=== PATIENT | female | born 1990 | race Caucasian/White ===

== ENCOUNTER 2019-01-21 16:43 | Emergency (ER) | payer OTHER ==
[~2019-01-21] VITALS: Ht 170.2 cm; Wt 67.1 kg
[2019-01-21 16:43] VITALS: BP 112/72
[~2019-01-21 16:43] MED LIST: ALPR0.25 PO; DEXT5TAB15 PO; SERT25TA PO
--- NOTE | 2019-01-21 18:14 | NUR ---
Patient discharged to home in stable condition. Written and verbal after care instructions given. Patient verbalizes understanding of instruction.
[2019-01-21] MEDS ORDERED: KETOROLAC TROMETHAMINE INJ 60 MG/2 ML VIAL IM ONE (18:30)
== END 2019-01-21 18:17 | disposition home or self-care (01) ==
LOC: ER 16:43
DX: F41.9 Anxiety disorder, unspecified (principal); F13.20 Sedative, hypnotic or anxiolytic dependence, uncomplicated; F11.20 Opioid dependence, uncomplicated; G89.29 Other chronic pain; M54.9 Dorsalgia, unspecified; F90.9 Attention-deficit hyperactivity disorder, unspecified type; F31.9 Bipolar disorder, unspecified; F10.10 Alcohol abuse, uncomplicated; F17.200 Nicotine dependence, unspecified, uncomplicated; Y90.9 Presence of alcohol in blood, level not specified; Z60.2 Problems related to living alone; Z76.0 Encounter for issue of repeat prescription

== ENCOUNTER 2020-05-17 13:21 | Emergency (ER) | payer OTHER ==
[~2020-05-17] VITALS: Ht 170.2 cm; Wt 63.5 kg
--- NOTE | 2020-05-17 13:36 | NUR ---
BIBS, WALKED IN. TO ER BED 7. AAOX4. HYPERVENTILATING. ANXIOUS. CAME IN FOR SOB AFTER USE METH. PER PT, SHE WAS DRIVING WHEN IT STATED. PT IS TALKING IN FULL SENTENCES. VERBALIZED THE SHE TOOK METH EARLIER. PT IS SATTING AT 98% ON RA. PT IS NOTED MOVING EXCESSIVELY BOTH BILAT UPPER AND LOWER. EMT AT BEDSIDE FOR EKA. ORDERS RECEIVED NOTED AND CARRIED OUT.
[2020-05-17 14:07] LABS: APPEARANCE,URINE Cloudy (CLEAR); BILIRUBIN,URINE Negative (NEGATIVE); BLOOD, URINE Negative Ery/uL (NEGATIVE); COLOR,URINE Yellow (YELLOW); KETONES,URINE Negative (NEGATIVE); LEUKOCYTE ESTERASE ,URINE Large (NEGATIVE); NITRITE, URINE Negative (NEGATIVE); PH,URINE 8.5 (5.0-8.0); PROTEIN,URINE Negative (NEGATIVE); UGLUCOSE Negative (NEGATIVE); UROBILINOGEN,URINE 0.2 EU/dL (0.2)
--- NOTE | 2020-05-17 14:10 | NUR ---
LAB AT BEDSIDE FOR BLOOD DRAW
[2020-05-17 14:11] LABS: RBC,URINE 0-2 /HPF (0-2)
[2020-05-17 14:12] LABS: BACTERIA,URINE Few /HPF (None Seen); SQUAMOUS EPITHELIAL CELL,UR Few /HPF (None Seen); URINE AMORPHOUS PHOSPHATES Moderate /HPF (None Seen)
[2020-05-17 14:24] LABS: BASOPHILS # (AUTO) 0.1 /CMM (0.0-0.2); BASOPHILS % (AUTO) 1.3 % (0.0-2.0); EOSINOPHILS % (AUTO) 1.8 % (0.0-6.0); HEMATOCRIT 47 % (33-45); HEMOGLOBIN 15.9 g/dL (11.5-14.8); LYMPHOCYTES # (AUTO) 2.5 /CMM (0.8-4.8); LYMPHOCYTES % (AUTO) 23.4 % (20.0-44.0); MEAN CORPUSCULAR HGB CONC 34 g/dl (31.0-36.0); MEAN CORPUSCULAR VOLUME 90 fL (82-100); NEUTROPHILS # (AUTO) 6.8 /CMM (1.8-8.9); NEUTROPHILS % (AUTO) 64.5 % (43.0-81.0); PLATELET COUNT (AUTO) 344 /CMM (150-450); RED BLOOD CELL COUNT(AUTO) 5.21 MIL/uL (4.0-5.2); WHITE BLOOD COUNT (AUTO) 10.6 K/uL (4.3-11.0)
[2020-05-17] MEDS ORDERED: LORAZEPAM 1 MG TABLET PO ONE (14:30)
[2020-05-17] MEDS ORDERED: RISP0.2515 PO (14:30)
[2020-05-17] MEDS ORDERED: QUET300T72 PO (14:30)
[2020-05-17] MEDS ORDERED: OXCA150T13 PO (14:30)
[2020-05-17 14:31] LABS: CARBON DIOXIDE 22 mmol/L (21-32); CHLORIDE 106 mmol/L (98-107); CREATININE 1.2 mg/dL (0.6-1.3); GLUCOSE 92 mg/dL (74-106); POTASSIUM 3.6 mmol/L (3.5-5.1); SODIUM SERUM 141 mmol/L (136-145); UREA NITROGEN, BLOOD 15 mg/dL (7-18)
[2020-05-17] MEDS ORDERED: LORAZEPAM 1 MG TABLET ONE (14:34)
[2020-05-17 14:37] LABS: ACETAMINOPHEN 0 ug/ml (10-30); ALANINE AMINOTRANSFERASE 19 U/L (12-78); ALBUMIN 3.9 g/dL (3.4-5.0); ALCOHOL, BLOOD < 3 mg/dL (0-0); ALKALINE PHOSPHATASE 51 U/L (46-116); ASPARTATE AMINOTRANSFERASE 17 U/L (15-37); BILIRUBIN,DIRECT 0.1 mg/dL (0.0-0.2); BILIRUBIN,TOTAL 0.5 mg/dL (0.2-1.0); SALICYLATE 2.7 mg/dL (2.8-20.0); TOTAL PROTEIN, SERUM 6.9 g/dL (6.4-8.2)
--- NOTE | 2020-05-17 14:48 | NUR ---
CALLED LAB TO ADD TRIPONIN
[2020-05-17] MEDS ORDERED: LORAZEPAM 0.5 MG TABLET PO ONE (15:30)
[2020-05-17] MEDS ORDERED: LORAZEPAM 0.5 MG TABLET ONE (15:31)
--- NOTE | 2020-05-17 16:16 | NUR ---
[facility] [employer] AT BEDSIDE FOR REPEAT TROPONIN DRAW
[2020-05-17 16:54] VITALS: BP 126/88
== END 2020-05-17 16:56 | disposition home or self-care (01) ==
LOC: ER 13:24
DX: F41.9 Anxiety disorder, unspecified (principal); F15.10 Other stimulant abuse, uncomplicated; R07.89 Other chest pain; Z60.2 Problems related to living alone; Z79.899 Other long term (current) drug therapy
CPT/HCPCS: 36415; 71045; 80048; 80076; 80305; 80307; 80329; 81001; 84484 ×2; 85025; 93005; 99285; G0480; 81000-TC

== ENCOUNTER → 2020-05-23 | Emergency (ER) | payer OTHER ==
[~2020-05-23] VITALS: Ht 165.1 cm; Wt 61.2 kg
[~2020-05-23] MED LIST changes: -ALPR0.25 PO; -DEXT5TAB15 PO; +KETOROLAC TROMETHAMINE INJ 60 MG/2 ML VIAL IM ONE; +OXCA150T13 PO; +QUET300T72 PO; +RISP0.2515 PO; -SERT25TA PO
[2020-05-23 13:00] VITALS: BP 117/72
--- NOTE | 2020-05-23 13:48 | NUR ---
Patient discharged to home in stable condition. Written and verbal after care instructions given. Patient verbalizes understanding of instruction.
== END | disposition home or self-care (01) ==
LOC: ER 12:52
DX: H92.03 Otalgia, bilateral (principal); J45.909 Unspecified asthma, uncomplicated; Z60.2 Problems related to living alone; Z79.899 Other long term (current) drug therapy
CPT/HCPCS: 96372; 99283; J1885

== ENCOUNTER 2020-11-09 12:54 | Emergency (ER) | payer OTHER ==
[~2020-11-09] VITALS: Ht 170.2 cm; Wt 74.8 kg
[~2020-11-09 12:54] MED LIST changes: -KETOROLAC TROMETHAMINE INJ 60 MG/2 ML VIAL IM ONE
--- NOTE | 2020-11-09 13:10 | NUR ---
The patient bibs for c/o RLQ pain radiating to right lower back x 4 days, +nausea, 8/10 pain. The patient denies vomiting. In room air and denies SOB. Respiration regular and unlabored. Warm blanket provided for comfort. Will continue to monitor.
[2020-11-09] MEDS ORDERED: IV NS 0.9% 1,000 ML BAG IV ONE (13:30)
[2020-11-09 13:38] LABS: BASOPHILS # (AUTO) 0.1 /CMM (0.0-0.2); BASOPHILS % (AUTO) 0.5 % (0.0-2.0); EOSINOPHILS % (AUTO) 0.6 % (0.0-6.0); HEMATOCRIT 45 % (33-45); LYMPHOCYTES # (AUTO) 2.2 /CMM (0.8-4.8); LYMPHOCYTES % (AUTO) 16.7 % (20.0-44.0); MEAN CORPUSCULAR HGB CONC 34 g/dl (31.0-36.0); MEAN CORPUSCULAR VOLUME 91 fL (82-100); MONOCYTES # (AUTO) 0.9 /CMM (0.1-1.30); NEUTROPHILS # (AUTO) 9.8 /CMM (1.8-8.9); NEUTROPHILS % (AUTO) 75.2 % (43.0-81.0); PLATELET COUNT (AUTO) 323 /CMM (150-450)
[2020-11-09 13:55] LABS: CALCIUM, SERUM 9.4 mg/dL (8.5-10.1); CARBON DIOXIDE 22 mmol/L (21-32); CHLORIDE 104 mmol/L (98-107); CREATININE 0.9 mg/dL (0.6-1.3); GLUCOSE 95 mg/dL (74-106); POTASSIUM 3.8 mmol/L (3.5-5.1); SODIUM SERUM 138 mmol/L (136-145); UREA NITROGEN, BLOOD 8 mg/dL (7-18)
[2020-11-09 14:00] LABS: ALANINE AMINOTRANSFERASE 38 U/L (12-78); ALKALINE PHOSPHATASE 47 U/L (46-116); ASPARTATE AMINOTRANSFERASE 22 U/L (15-37); BILIRUBIN,DIRECT 0.1 mg/dL (0.0-0.2); BILIRUBIN,TOTAL 0.7 mg/dL (0.2-1.0); LIPASE 73 U/L (73-393); TOTAL PROTEIN, SERUM 7.3 g/dL (6.4-8.2)
[2020-11-09] MEDS ORDERED: CT SWABBABLE VALVE TRANS SET 1 EA INFUS.SET MC ONE (14:15)
[2020-11-09] MEDS ORDERED: IV NS 0.9% 250 ML IV ONE (14:15)
[2020-11-09] MEDS ORDERED: IOHEXOL-300 100 ML VIAL IV ONE (14:15)
[2020-11-09] MEDS ORDERED: ONDANSETRON HCL/PF - ER 4 MG/2 ML VIAL IV ONE (15:00)
[2020-11-09] MEDS ORDERED: LORAZEPAM 1 MG TABLET PO ONE (15:00)
[2020-11-09] MEDS ORDERED: ONDANSETRON HCL/PF 4 MG/2 ML VIAL ONE (15:02)
[2020-11-09] MEDS ORDERED: LORAZEPAM 0.5 MG TABLET ONE (15:02)
[2020-11-09 15:40] LABS: BILIRUBIN,URINE NEGATIVE (NEGATIVE); COLOR,URINE YELLOW (YELLOW); LEUKOCYTE ESTERASE ,URINE LARGE (NEGATIVE); NITRITE, URINE NEGATIVE (NEGATIVE); PROTEIN,URINE NEGATIVE (NEGATIVE); UGLUCOSE NEGATIVE (NEGATIVE); UROBILINOGEN,URINE 0.2 EU/dL (0.2)
[2020-11-09 15:58] LABS: BACTERIA,URINE Many /HPF (None Seen); SQUAMOUS EPITHELIAL CELL,UR Many /HPF (None Seen)
[2020-11-09 15:59] LABS: WBC,URINE 21-50 /HPF (0-3)
[2020-11-09] MEDS ORDERED: CEFTRIAXONE 1 G in IV D5W 50 ML IV ONE (16:00)
[2020-11-09] MEDS ORDERED: CEFTRIAXONE 1GM BAG (ER ONLY) 50 ML IV ONE (16:10)
[2020-11-09] MEDS ORDERED: CEPH250C PO (16:12)
[2020-11-09] MEDS ORDERED: IBUP-1955 PO (16:13)
[2020-11-09 16:43] VITALS: BP 118/77
--- NOTE | 2020-11-09 16:43 | NUR ---
Patient discharged to home in stable condition. Written and verbal after care instructions given. Patient verbalizes understanding of instruction.IV removed. Catheter intact and site benign. Pressure and 4x4 applied to site. No bleeding noted.
== END 2020-11-09 16:43 | disposition home or self-care (01) ==
LOC: ER 12:59
DX: N39.0 Urinary tract infection, site not specified (principal); F41.9 Anxiety disorder, unspecified; J45.909 Unspecified asthma, uncomplicated; Z90.89 Acquired absence of other organs; Z79.899 Other long term (current) drug therapy
CPT/HCPCS: 36415; 74176; 76705; 80048; 80076; 81001; 83690; 84484; 84702; 84703; 85025; 87086; 96361; 96365; 96375; 99285; J0696; J2405; J7050; J7060; Q9967

== ENCOUNTER 2021-01-01 09:43 | Emergency (ER) | payer OTHER ==
[~2021-01-01] VITALS: Ht 170.2 cm; Wt 72.6 kg
[~2021-01-01 09:43] MED LIST changes: +CEPH250C PO; +IBUP-1955 PO
--- NOTE | 2021-01-01 09:58 | NUR ---
patient came in to the er. +SI with no plan, denies HI, c/o N/V couple days admits on using meth. On room air, breathing evenly and unlabored. Kept comfortable, sitter at bedside for constant monitoring. Will continue to monitor accordingly.
--- NOTE | 2021-01-01 09:59 | NUR ---
called security for wanding
--- NOTE | 2021-01-01 10:01 | NUR ---
urine collected and sent to lab
[2021-01-01 10:12] LABS: BILIRUBIN,URINE Negative (NEGATIVE); COLOR,URINE YELLOW (YELLOW); LEUKOCYTE ESTERASE ,URINE Small (NEGATIVE); NITRITE, URINE Negative (NEGATIVE); PH,URINE 5.5 (5.0-8.0); PROTEIN,URINE Negative (NEGATIVE); UGLUCOSE Negative (NEGATIVE); UROBILINOGEN,URINE 0.2 EU/dL (0.2)
[2021-01-01 10:15] LABS: BACTERIA,URINE 1+ /HPF (None Seen); SQUAMOUS EPITHELIAL CELL,UR Few /HPF (None Seen)
[2021-01-01 10:30] LABS: BASOPHILS # (AUTO) 0.1 /CMM (0.0-0.2); BASOPHILS % (AUTO) 0.8 % (0.0-2.0); EOSINOPHILS % (AUTO) 1.5 % (0.0-6.0); HEMATOCRIT 44 % (33-45); HEMOGLOBIN 14.7 g/dL (11.5-14.8); LYMPHOCYTES # (AUTO) 1.9 /CMM (0.8-4.8); LYMPHOCYTES % (AUTO) 21.3 % (20.0-44.0); MEAN CORPUSCULAR HGB CONC 34 g/dl (31.0-36.0); MEAN CORPUSCULAR VOLUME 91 fL (82-100); MONOCYTES # (AUTO) 0.5 /CMM (0.1-1.30); MONOCYTES % (AUTO) 6.2 % (2.0-12.0); NEUTROPHILS # (AUTO) 6.2 /CMM (1.8-8.9); NEUTROPHILS % (AUTO) 70.2 % (43.0-81.0); PLATELET COUNT (AUTO) 424 /CMM (150-450); RED BLOOD CELL COUNT(AUTO) 4.76 MIL/uL (4.0-5.2); WHITE BLOOD COUNT (AUTO) 8.8 K/uL (4.3-11.0)
[2021-01-01 10:44] LABS: ALANINE AMINOTRANSFERASE 23 U/L (12-78); ALBUMIN 3.8 g/dL (3.4-5.0); ALKALINE PHOSPHATASE 60 U/L (46-116); ASPARTATE AMINOTRANSFERASE 11 U/L (15-37); BILIRUBIN,DIRECT 0.1 mg/dL (0.0-0.2); BILIRUBIN,TOTAL 0.5 mg/dL (0.2-1.0); CARBON DIOXIDE 22 mmol/L (21-32); CHLORIDE 105 mmol/L (98-107); CREATININE 0.8 mg/dL (0.6-1.3); GLUCOSE 115 mg/dL (74-106); POTASSIUM 3.7 mmol/L (3.5-5.1); SODIUM SERUM 139 mmol/L (136-145); TOTAL PROTEIN, SERUM 7.1 g/dL (6.4-8.2); UREA NITROGEN, BLOOD 9 mg/dL (7-18)
[2021-01-01 10:50] LABS: ACETAMINOPHEN < 2 ug/ml (10-30); ALCOHOL, BLOOD < 3 mg/dL (0-0)
[2021-01-01] MEDS ORDERED: QUETIAPINE FUMARATE 100 MG TABLET PO SCH (11:00)
[2021-01-01] MEDS ORDERED: OLANZAPINE 5 MG TABLET PO ONE (11:00)
--- NOTE | 2021-01-01 11:30 | NUR ---
COVID SWAB DONE AND SENT TO LAB
[2021-01-01] MEDS ORDERED: OLANZAPINE 5 MG TABLET ONE (11:55)
--- NOTE | 2021-01-01 14:29 | NUR ---
PT IS ACCEPTED AT [facility] BY AND . NUMBER FOR REPORT: [phone]
--- NOTE | 2021-01-01 14:31 | NUR ---
REPORT GIVEN TO JULIO TRUONG FOR [facility].
--- NOTE | 2021-01-01 14:48 | NUR ---
CALLED CALL THE CAR FOR BLS TRANSPORT TO [facility]. WILL CALLBACK FOR ETA.
--- NOTE | 2021-01-01 14:55 | NUR ---
CONFIRMATION NUMBER FOR TRANSPORT IS [id number]
--- NOTE | 2021-01-01 16:52 | NUR ---
[id number]
--- NOTE | 2021-01-01 18:50 | NUR ---
REPORT GIVEN TO [employer]. PATIENT A/OX4, BREATHING EVEN AND UNLABORED, NO SOB NOTED. NEEDS ATTENDED. DISCHARGE PAPERWORKS PROVIDED. PATIENT TRANSFERRED TO [facility] IN STABLE CONDITION.
[2021-01-01 18:53] VITALS: BP 103/78
== END 2021-01-01 18:55 ==
LOC: ER 09:45
DX: R45.851 Suicidal ideations (principal); F20.9 Schizophrenia, unspecified; J45.909 Unspecified asthma, uncomplicated; Z91.5 Personal history of self-harm; Z20.822 Contact with and (suspected) exposure to COVID-19; R82.71 Bacteriuria; F17.200 Nicotine dependence, unspecified, uncomplicated
CPT/HCPCS: 36415; 80048; 80076; 80299; 80307; 80320; 81001; 84703; 85025; 87086; 87426; 99285; C9803; G0480

== ENCOUNTER 2025-07-18 02:03 | Emergency (ER) | payer OTHER ==
[~2025-07-18] VITALS: Ht 172.7 cm; Wt 97.5 kg
[2025-07-18] MEDS ORDERED: ONDANSETRON HCL/PF 4 MG/2 ML VIAL ONE (02:45)
[2025-07-18] MEDS ORDERED: MORPHINE SULFATE INJ 4 MG/ML DISP.SYRIN ONE ×2 (02:46→03:41)
[2025-07-18] MEDS: ONDANSETRON HCL/PF - ER 4 MG/2 ML VIAL IV ONE (02:48)
[2025-07-18] MEDS: IV NS 0.9% 1,000 ML BAG IV ONE (02:48)
[2025-07-18] MEDS: MORPHINE SULFATE INJ 2 MG/ML DISP.SYRIN IV ONE ×2 (02:48→03:42)
[2025-07-18 02:50] LABS: PLATELET COUNT (AUTO) 373 K/uL (150-450); RED BLOOD CELL COUNT(AUTO) 4.60 MIL/uL (4.0-5.2); RED CELL DISTRIBUTION WIDTH 13.7 % (11.5-15.0); WHITE BLOOD COUNT (AUTO) 9.2 K/uL (4.3-11.0)
[2025-07-18 02:56] LABS: CALCIUM, SERUM 8.6 mg/dL (8.5-10.1); CREATININE 0.8 mg/dL (0.6-1.3); SODIUM SERUM 139.0 mmol/L (136-145); UREA NITROGEN, BLOOD 13.0 mg/dL (7-18)
[2025-07-18] MEDS ORDERED: IOHEXOL-300 100 ML VIAL IV ONE (02:57)
[2025-07-18] MEDS ORDERED: CT SWABBABLE VALVE TRANS SET 1 EA INFUS.SET MC ONE (02:57)
[2025-07-18] MEDS ORDERED: IV NS 0.9% 250 ML IV ONE (02:58)
[2025-07-18 03:01] LABS: ASPARTATE AMINOTRANSFERASE 20.0 U/L (15-37); TOTAL PROTEIN, SERUM 6.4 g/dL (6.4-8.2)
[2025-07-18 03:04] LABS: LACTIC ACID 1.1 mmol/L (0.4-2.0)
[2025-07-18] MEDS ORDERED: KETOROLAC TROMETHAMINE INJ 30 MG/ML VIAL ONE (03:41)
[2025-07-18] MEDS: KETOROLAC TROMETHAMINE INJ 30 MG/ML VIAL IV ONE (03:43)
[2025-07-18] MEDS ORDERED: PROCHLORPERAZINE EDISYLATE 10 MG/2 ML VIAL ONE (05:03)
[2025-07-18] MEDS: PROCHLORPERAZINE EDISYLATE 10 MG/2 ML VIAL IVP ONE (05:05)
[2025-07-18 07:05] VITALS: TEMP 98.8
[2025-07-18 07:30] LABS: APPEARANCE,URINE SLIGHTLY CLOUDY (CLEAR); BLOOD, URINE NEGATIVE Ery/uL (NEGATIVE); LEUKOCYTE ESTERASE ,URINE NEGATIVE (NEGATIVE); NITRITE, URINE NEGATIVE (NEGATIVE); UGLUCOSE NEGATIVE (NEGATIVE)
[2025-07-18 07:31] LABS: PREGNANCY TEST URINE QUAL NEGATIVE (NEGATIVE)
[2025-07-18 07:40] LABS: ADD URINE CULTURE YES; URINE AMORPHOUS PHOSPHATES Few /HPF (None Seen)
[2025-07-18 08:14] VITALS: BP 112/70; O2SAT 97
[2025-07-18] MEDS ORDERED: BUDE10.2 IH (08:34)
[2025-07-18] MEDS ORDERED: ALBU90AE2 IH (08:34)
[2025-07-18] MEDS ORDERED: ALPR1TAB7 PO (08:34)
[2025-07-18] MEDS ORDERED: LISD50CA2 PO (08:34)
[2025-07-18] MEDS ORDERED: HYDR-3976 PO (08:34)
[2025-07-18] MEDS ORDERED: ARIP30TA21 PO (08:34)
[2025-07-18] MEDS ORDERED: SERT100T12 PO (08:34)
== END 2025-07-18 08:57 | disposition short-term general hospital (02) ==
LOC: ER 02:10
DX: K42.9 Umbilical hernia without obstruction or gangrene (principal); J45.909 Unspecified asthma, uncomplicated; F17.200 Nicotine dependence, unspecified, uncomplicated; F12.90 Cannabis use, unspecified, uncomplicated; Z79.899 Other long term (current) drug therapy; Z60.2 Problems related to living alone
CPT/HCPCS: 99291; 74177; 96374; 96375; 96361; 96376; 85025; 80048; 87086; 83605; 83690; 80076; 84703; 81001; 36415; J1885; J0780; J2270 ×2; J2405 ×2; J7030 ×2; J7050; Q9967